=== PATIENT | male | born 1990 | race Caucasian/White ===

== ENCOUNTER 2025-01-10 17:45 | Day surgery (SDC) | payer OTHER, SELFPAY ==
[2025-01-10] VITALS (9 sets, daily range): BP systolic 124–144; BP diastolic 83–102; PULSE 72–88; RESP 20–27; TEMP 36.3–36.7; O2SAT 98–100
--- OUTSIDE RECORDS SUMMARY | 2025-01-10 18:11 | XMS_ITS | Clinical Summary ---
Author Organization [facility] Address [address] [place] [address] Phone Care Team Providers Care Brim Stitcher Name Role Phone Unavailable Primary Care Provider Unavailabl e Social History Tobacco Use Types Packs/Day Years Used Date Smoking Tobacco: Never Assessed Sex and Gender Information Value Date Recorded Sex Assigned at Not on file Legal Sex Male 9:30 AM CDT Gender Identity Not on file Sexual Orientation Not on file Plan of Treatment Health Maintenance Due Date Last Done Comments DTAP/TDAP/TD VACCINES (1 - Tdap) 02/09/2008 HEPATITIS B VACCINES (1 of 3 - 19+ 3-dose series) 01/14 HPV VACCINES (1 - 3-dose SCDM series) 02/09/2016 INFLUENZA VACCINE (#1) 2024 Insurance [employer] CHOICE POS II
--- OUTSIDE RECORDS SUMMARY | 2025-01-10 18:11 | XMS_ITS | Clinical Summary ---
Author Organization [facility] Address [facility] [place] [address] Care Team Providers Care Aircraft Riveter Name Role Phone LuisjinaCarlos garner Sanjay MCKEON Primary Care Provider + Allergies No known active allergies Medications omeprazole (PRILOSEC) 40 MG capsuleIndicati ons:Chronic cough Take 1 capsule (40 mg total) by mouth daily. 90 capsule 07/01/2022 Active Active Problems No known active problems Immunizations Immunization Administration Dates Next Due Fluzone 6 Months+ Quad (0.5 mL Prefilled Syringe ) 12/19/2019 Influenza Adult (Generic) 01/26/2022,04/25/2021 PFIZER COVID-19 (ORIGINAL FO RMULATION, PURPLE CAP) mRNA, LNP-S, PF, 30 MCG/0.3 ML DOSE 03/26/2020,03/05/2020 Tdap (Adacel) 02/04/2022 Family History Medical History Relation Comments Diabetes Father Hypertension Father Stroke Father Hypertension Mother Relation Status Comments Father Mother Social History Tobacco Use Types Packs/Day Years Used Date Smoking Tobacco: Never Passive Smoke Exposure: Never Smokeless Tobacco: Never Alcohol Use Standard Drinks/Week Comments Not Currently 3.3 (1 standard drink = 0.6 oz p ure alcohol) very rare AUDIT-C Answer Date Recorded Q1: How often do you have a drink containing alc ohol? Never 12/30/2019 Average Number of Drinks Not on file 020 Frequency of Binge Drinking Not on file 12/13 PHQ-2 Answer Date Recorded Patient Health Questionnaire-2 Score 0 07/01/2022 Sex and Gender Information Value Date Recorded Sex Assigned at Not on file Legal Sex Male 11:45 AM CDT Gender Identity Not on file Sexual Orientation Not on file Occupation Industry Job Start Date Job End Date Not on file Not on file Not on file Not on file Last Filed Vital Signs Vital Sign Reading Time Taken Comments Blood Pressure 112/78 07/01/2022 11:15 AM CDT Pulse 80 07/01/2022 11:15 AM CDT Temperature 36.9 C (98.4 F) 07/01/2022 11:15 AM CDT Respiratory Rate 16 07/01/2022 11:1 5 AM CDT Oxygen Saturation 98% 07/01/2022 11: 15 AM CDT Inhaled Oxygen Concentration - - Weight 122.9 kg (270 lb 14.4 oz) 2022 11:15 AM CDT Height 175.3 cm (5' 9) 07/01/2022 11:1 5 AM CDT Body Mass Index 40 07/01/2022 11:15 AM CDT Plan of Treatment Health Maintenance Due Date Last Done Comments Hepatitis B Vaccines (1 of 3 - 19+ 3-dose series) 02/09/2008 HPV Vaccines (1 - 3-dose SCD M series) 02/09/2016 Annual Physical 02/04/2023 02/04/2022 COVID-19 Vaccine (3 - 2024-2 6 season) 2024 03/26/2020, 03/05/2020 Influenza Adult (#1) 2024 01/26/2022, 04/25/2021, 12/19/2019 DTaP, Tdap and Td Vaccines ( 2 - Td or Tdap) 02/05/2032 02/04/2022 Hepatitis C Completed 07/03/2022 Hepatitis A Vaccines Aged Out No long er eligible based on patient's age to complete this topic Meningococcal B Vaccine Aged Out No l onger eligible based on patient's age to complete this topic Meningococcal Vaccine Aged Out No naresh power eligible based on patient's age to complete this topic Pneumococcal Vaccine: Pediatrics (0 to 5 Years) and At-Risk Patients (6 to 49 Years) Aged Out No longer eligible b ased on patient's age to complete this topic RSV Immunizations Under 20 Months Aged Out No longer eligible b ased on patient's age to complete this topic Procedures Procedure Name Priority Date/Time Associated Diagnosis Comments HEPATITIS C ANTIBODY W/RFX TO HCV RNA Routine 07/03/2022 9:13 AM CDT from Last 3 Months or Most Recently Relevant to Health Maintenance Results * HEPATITIS C ANTIBODY W/RFX TO HCV RNA (07/03/2022 9:13 AM CDT) HEPATITIS C AB NON-REACT KELI NON-REACT KELI [facility] SIGNAL TO CUTOFF 0.05 <1.00 [employer] Comment: HCV antibody was non-reactive. There is no laboratory evidence of HCV infection. In most cases, no further action is required. However, if recent HCV exposure is suspected, a test for HCV RNA (test code 90485) is suggested. For additional information please refer to http://education.[employer]/faq/VUO03p5 (This link is being provided for informational/ educational purposes only.) 07/03/2022 9:13 AM CDT 07/03/2022 9:16 AM CDT Narrative Resulting Agency Comment Performing Organization Information: Site ID: [place] Name: [facility] Address: [address] [place] [id number] Director: Celena Campbell MD Carlos Rawls DO LABORATORY Final Re sult [facility] [address] [place], [place] [address] from Last 3 Months or Most Recently Relevant to Health Maintenance Insurance [employer] Care Teams Aircraft Riveter Relationship Specialty Start Date End Date Carlos Rawls DO [address] [place] [id number] PCP - General FAMILY PRACTICE 02/04/22
--- NOTE | 2025-01-10 18:25 | ECG_ITS ---
Test Date: 2025-01-10 18:56:27 Measurements Intervals [place] Rate: 81 P: 35 W[place]: 159 QRS: 23 QRSD: 105 T: 26 QT: 365 QTc: 426 Interpretive Statements SINUS RHYTHM WITH SINUS ARRHYTHMIA POSSIBLE LEFT ATRIAL ENLARGEMENT BASELINE ARTIFACT- I, II, III, AVR, AVL BORDERLINE ECG No previous ECG available for comparison Electronically Signed On 01-10-2025 20:29:57 CDT by Roberto Villarreal D.O.
--- NOTE | 2025-01-10 18:26 | ED_ITS ---
HPI - General Adult General Chief complaint: Skin/Abscess/Foreign Body Stated complaint: ?beef stuck in esophagus Time Seen by Provider: 01/10/25 18:03 History of Present Illness HPI narrative: 34-year-old male present to the emergency department for evaluation for concern for esophageal food bolus. Patient states he was eating pieces of beef at lunch today and is currently obstructed. Patient states since that time he has been unable to swallow his own secretions without further emesis. Patient does have prior history of esophagitis and gastritis. Patient has had prior short lasting obstructions but nothing has required intervention. Patient has never had any endoscopy. Related Data Allergies Allergy/AdvReac Type Severity Reaction Status Date / Time No Known Allergies Allergy Mild Verified 01/10/25 19:48 Review of Systems 2 Review of Systems: All systems reviewed & are unremarkable except as noted in HPI and below PMFSH Past Medical History Medical History (Updated 01/10/25 @ 20:19 by Lauri Dickson MD) Food impaction of esophagus Morbid obesity Exam 2 Narrative: APPEARANCE: Uncomfortable appearing HEAD: normocephalic, atraumatic. EYES: PERRLA/EOMI, conjunctivae clear. NOSE: Normal no drainage EARS:TMS clear with good light reflex. THROAT: Pharynx clear, no exudate. NECK: Supple. No adenopathy, no masses. RESPIRATORY: Airway patent, respirations nonlabored. Clear to auscultation bilaterally, no rales, rhonchi, wheezing. CARDIOVASCULAR: Regular rate and rhythm without murmurs rubs or gallops. ABDOMINAL: Soft, nontender, nondistended, normal bowel sounds MUSCULOSKELETAL: Moves all extremities. Strength/ROM intact, No edema, No calf tenderness. NEURO: Alert. Cranial nerves II through XII intact. Good gait. Good coordination SKIN: Warm, dry. Normal Color Course Vital Signs Vital signs: Vital Signs Temperature 98.0 F 01/10/25 17:54 Pulse Rate 88 01/10/25 17:54 Respiratory Rate 20 01/10/25 17:54 Blood Pressure 144/102 H 01/10/25 17:54 Pulse Oximetry 98 01/10/25 17:54 Oxygen Delivery Room Air 01/10/25 17:54 Temperature 97.6 F 01/10/25 21:28 Pulse Rate 77 01/10/25 21:28 Respiratory Rate 25 H 01/10/25 21:28 Blood Pressure 127/83 01/10/25 21:28 Pulse Oximetry 98 01/10/25 21:28 Oxygen Delivery Room Air 01/10/25 21:28 Oxygen Flow Rate 8 01/10/25 20:38 Medical Decision Making MDM Narrative Medical decision making narrative: 34-year-old male presents emergency department for evaluation for suspected fluid bolus. Patient is currently unable to handle his own secretions and this has been persistent since noon. Patient did attempt baking soda and tapping checks at home with no improvement. Patient was treated with glucagon emergency department with no improvement. Case was discussed with GI and patient was taken to the GI lab. Patient was updated on the results of the consult and plan for intervention. Patient was afebrile with no leukocytosis hemoglobin of 14.9. No abnormalities on his CMP and EKG showed normal sinus rhythm. Patient was well-appearing at transfer to the GI lab. Differential Diagnosis Differential Diagnosis: Esophageal obstruction, gastritis, esophagitis Vital Signs Vital Signs: Vital Signs Temperature 98.0 F 01/10/25 17:54 Pulse Rate 88 01/10/25 17:54 Respiratory Rate 20 01/10/25 17:54 Blood Pressure 144/102 H 01/10/25 17:54 Pulse Oximetry 98 01/10/25 17:54 Oxygen Delivery Room Air 01/10/25 17:54 Temperature 97.6 F 01/10/25 21:28 Pulse Rate 77 01/10/25 21:28 Respiratory Rate 25 H 01/10/25 21:28 Blood Pressure 127/83 01/10/25 21:28 Pulse Oximetry 98 01/10/25 21:28 Oxygen Delivery Room Air 01/10/25 21:28 Oxygen Flow Rate 8 01/10/25 20:38 Lab Data 01/10/25 18:50 01/10/25 18:50 Labs: Lab Results 01/10/25 Range/Units 18:50 WBC 3.6 L (4.5-10.0) K/mm3 RBC 5.39 (4.6-6.20) M/mm3 Hgb 14.9 (14.0-18.0) g/dL Hct 44.6 (42.0-52.0) % MCV 82.7 (80-100) fl MCH 27.6 (26-34) pg MCHC 33.4 (32-36) g/dl RDW 14.2 (11.5-14.5) % Plt Count 170 (150-375) k/mm3 MPV 9.5 (7.4-10.4) fl Immature Gran % (Auto) Not Reportable Neut % (Auto) Not Reportable Lymph % (Auto) Not Reportable [place] % (Auto) Not Reportable Eos % (Auto) Not Reportable Baso % (Auto) Not Reportable Lymph # (Auto) Not Reportable [place] # (Auto) Not Reportable Eos # (Auto) Not Reportable Baso # (Auto) Not Reportable Abs Immat Gran (auto) Not Reportable Absolute Neuts (auto) Not Reportable Absolute Nucleated RBC Not Reportable Total Counted 100 Neutrophils % (Manual) 18 L (46-73) % Band Neutrophils % 3 (0-6) % Lymphocytes % (Manual) 50.0 H (18-44) % Monocytes % (Manual) 19 H (3-9) % Eosinophils % (Manual) 9 H (0-4) % Basophils % (Manual) 1 (0-1) % Nucleated RBC % Not Reportable Abs Neuts (Manual) 0.75 L (1.3-6.7) K/mm3 Abs Lymphs (Manual) 1.80 (1.1-4.5) K/mm3 Abs Monocytes (Manual) 0.68 (0.1-0.90) K/mm3 Absolute Eos (Manual) 0.32 (0.02-0.50) K/mm3 Abs Basophils (Manual) 0.03 (0.0-0.1) K/mm3 Platelet Estimate Adequate (Adequate) Schistocytes None seen PT 12.9 (11.1-14.7) Seconds INR 1.0 APTT 27.3 (22.3-36.8) Seconds Sodium 141 (137-145) mmol/L Potassium 3.6 (3.4-5.0) mmol/L Chloride 104 (98-107) mmol/L Carbon Dioxide 26 (22-30) mmol/L Anion Gap 11 (4-12) mmol/L BUN 9 (9-20) mg/dL Creatinine 1.20 (0.7-1.3) mg/dL Estim Creat Clear Calc 99 ml/min Estimated GFR > 60 (59 - ) Glucose 92 (65-110) mg/dL Calcium 9.1 (8.4-10.2) mg/dL Total Bilirubin 1.3 (0.2-1.3) mg/dL AST 37 (17-59) U/L ALT 42 (6-50) U/L Alkaline Phosphatase 97 (38-126) U/L Total Protein 7.5 (6.3-8.2) g/dL Albumin 4.5 (3.5-5.1) g/dL Discharge Plan Discharge Clinical Impression: Food impaction of esophagus Patient Disposition: Home Condition: Stable
[2025-01-10 18:57] LABS: Hematocrit 44.6 % (42.0-52.0); Hemoglobin 14.9 g/dL (14.0-18.0); Mean Corpuscular HGB Conc 33.4 g/dl (32-36); Mean Corpuscular Hemoglobin 27.6 pg (26-34); Mean Corpuscular Volume 82.7 fl (80-100); Platelet Count Result 170 k/mm3 (150-375); Red Blood Count 5.39 M/mm3 (4.6-6.20); White Blood Count 3.6 K/mm3 (4.5-10.0)
[2025-01-10 19:08] LABS: Alanine Aminotransferase 42 U/L (6-50); Albumin Level 4.5 g/dL (3.5-5.1); Alkaline Phosphatase 97 U/L (38-126); Anion Gap 11 mmol/L (4-12); Aspartate Amino Transferase 37 U/L (17-59); Bilirubin,Total 1.3 mg/dL (0.2-1.3); Blood Urea Nitrogen 9 mg/dL (9-20); Calcium 9.1 mg/dL (8.4-10.2); Carbon Dioxide 26 mmol/L (22-30); Chloride 104 mmol/L (98-107); Estimated CRCL calculation 99 ml/min; Estimated Glomerular Filt Rate > 60; Glucose 92 mg/dL (65-110); Potassium 3.6 mmol/L (3.4-5.0); Sodium 141 mmol/L (137-145); Total Protein 7.5 g/dL (6.3-8.2)
[2025-01-10 19:11] LABS: INR 1.0; Prothrombin Time 12.9 Seconds (11.1-14.7)
[2025-01-10 19:12] LABS: Partial Thromboplastin Time 27.3 Seconds (22.3-36.8)
--- NOTE | 2025-01-10 19:25 | PC.NURSE ---
Mary from GI calling for report on pt. Will be here to get pt here shortly
[2025-01-10 19:32] LABS: Band Neutrophils Percent 3 % (0-6); Basophils Absolute Manual 0.03 K/mm3 (0.0-0.1); Basophils Percent Manual 1 % (0-1); Eosinophils Absolute Manual 0.32 K/mm3 (0.02-0.50); Eosinophils Percent Manual 9 % (0-4); Lymphocytes Absolute Manual 1.80 K/mm3 (1.1-4.5); Lymphocytes Percent Manual 50.0 % (18-44); Monocytes Absolute Manual 0.68 K/mm3 (0.1-0.90); Monocytes Percent Manual 19 % (3-9); Neutrophils Absolute Manual 0.75 K/mm3 (1.3-6.7); Neutrophils Percent Manual 18 % (46-73); Schistocytes None Seen; Total Cells Counted 100
--- NOTE | 2025-01-10 19:37 | P.PNAN_ITS ---
Anes - Eval Pre Procedure Procedure: EGD for food bolus Date/Time: 01/10/25 19:37 Surgeon: Anil Preop Diagnosis: Foreign body esophagus Pre Op Diagnosis: ?beef stuck in esophagus Patient Data Age: 34 Gender: M Height: 1.75 m Weight: 122.3 kg Last Vital Signs Temp 98.0 F 01/10/25 17:54 Pulse 88 01/10/25 17:54 Resp 20 01/10/25 17:54 BP 144/102 H 01/10/25 17:54 Pulse Ox 98 01/10/25 17:54 O2 Del Method Room Air 01/10/25 17:54 Allergies Allergy/AdvReac Type Severity Reaction Status Date / Time No Known Allergies Allergy Mild Verified 01/10/25 17:48 Laboratory Tests 01/10/25 18:50 WBC 3.6 L K/mm3 (4.5-10.0) RBC 5.39 M/mm3 (4.6-6.20) Hgb 14.9 g/dL (14.0-18.0) Hct 44.6 % (42.0-52.0) MCV 82.7 fl (80-100) MCH 27.6 pg (26-34) MCHC 33.4 g/dl (32-36) RDW 14.2 % (11.5-14.5) Plt Count 170 k/mm3 (150-375) MPV 9.5 fl (7.4-10.4) Immature Gran % (Auto) Not Reportable Neut % (Auto) Not Reportable Lymph % (Auto) Not Reportable [place] % (Auto) Not Reportable Eos % (Auto) Not Reportable Baso % (Auto) Not Reportable Lymph # (Auto) Not Reportable [place] # (Auto) Not Reportable Eos # (Auto) Not Reportable Baso # (Auto) Not Reportable Abs Immat Gran (auto) Not Reportable Absolute Neuts (auto) Not Reportable Absolute Nucleated RBC Not Reportable Total Counted 100 Neutrophils % (Manual) 18 L % (46-73) Band Neutrophils % 3 % (0-6) Lymphocytes % (Manual) 50.0 H % (18-44) Monocytes % (Manual) 19 H % (3-9) Eosinophils % (Manual) 9 H % (0-4) Basophils % (Manual) 1 % (0-1) Nucleated RBC % Not Reportable Abs Neuts (Manual) 0.75 L K/mm3 (1.3-6.7) Abs Lymphs (Manual) 1.80 K/mm3 (1.1-4.5) Abs Monocytes (Manual) 0.68 K/mm3 (0.1-0.90) Absolute Eos (Manual) 0.32 K/mm3 (0.02-0.50) Abs Basophils (Manual) 0.03 K/mm3 (0.0-0.1) Platelet Estimate Adequate (Adequate) Schistocytes None seen PT 12.9 Seconds (11.1-14.7) INR 1.0 APTT 27.3 Seconds (22.3-36.8) Sodium 141 mmol/L (137-145) Potassium 3.6 mmol/L (3.4-5.0) Chloride 104 mmol/L (98-107) Carbon Dioxide 26 mmol/L (22-30) Anion Gap 11 mmol/L (4-12) BUN 9 mg/dL (9-20) Creatinine 1.20 mg/dL (0.7-1.3) Estim Creat Clear Calc 99 ml/min Estimated GFR > 60 (59 - ) Glucose 92 mg/dL (65-110) Calcium 9.1 mg/dL (8.4-10.2) Total Bilirubin 1.3 mg/dL (0.2-1.3) AST 37 U/L (17-59) ALT 42 U/L (6-50) Alkaline Phosphatase 97 U/L (38-126) Total Protein 7.5 g/dL (6.3-8.2) Albumin 4.5 g/dL (3.5-5.1) Patient hx anesthesia problems: none Family hx anesthesia problems: none Results Review: All pre-operative results and documents have been reviewed as part of the pre- operative evaluation. [facility] Past Medical History Medical History (Updated 01/10/25 @ 19:38 by Shashank Morales Jr., HOGSHEAD SALVAGE) Morbid obesity Exam Day of Procedure 01/10/25 19:37 Patient weight: morbidly obese Heart: regular rate and rhythm Lungs: clear to auscultation Airway: Mallampati scale class III Neurological: alert and oriented
--- NOTE | 2025-01-10 19:41 | P.PNAN_ITS ---
Anes - Eval Final PreProcedure Day of Procedure 01/10/25 19:41 Patient weight: morbidly obese Heart: regular rate and rhythm Lungs: clear to auscultation Airway: Mallampati scale class III Neurological: alert and oriented Last oral intake: 6 hours ASA classification: III Emergent: yes Anesthetic plan: proceed Anesthesia type and monitoring: general GIVS and ETT and standard monitoring Results Review: All pre-operative results and documents have been reviewed as part of the pre- operative evaluation. Informed Consent: The patient's anesthetic plan and its attendant risks and benefits were discu ssed with the patient/family/POA. Questions were solicited and answers provided to the satisfaction of the patient/family/POA.
[2025-01-10] MEDS: LACTATED RINGERS 1,000 ML 150 ML IV CONT (19:52)
--- NOTE | 2025-01-10 19:53 | PM.HPGS ---
History of Present Illness History of Present Illness Consent: Risks, benefits, and alternatives have been discussed and questions answered. Patient agrees to proceed with procedure. Chief complaint: food bolus Narrative: Hector Narvaez is a 34 year old male with h/o intermittent dysphagia after eating solids but never had egd, he had steak for lunch and since unable to swallow even saliva, glucagon in ER did not help Review of Systems Review of Systems: All systems reviewed & are unremarkable except as noted in HPI and below PMFSH Past Medical History Medical History (Updated 01/10/25 @ 19:55 by Lauri Dickson MD) Food impaction of esophagus Morbid obesity Meds Home Medications and Allergies Allergies Allergy/AdvReac Type Severity Reaction Status Date / Time No Known Allergies Allergy Mild Verified 01/10/25 19:48 Vital Signs Vital Signs - 24 hr 01/10/25 17:54 01/10/25 19:50 Temperature 98.0 F 97.5 F L Pulse Rate 88 83 Respiratory Rate 20 20 Blood Pressure 144/102 H 126/90 Pulse Oximetry 98 99 Oxygen Delivery Room Air Room Air Exam Const: General: cooperative and healthy appearing GI: GI Palp: No abdominal tenderness Auscultation: normal bowel sounds Extrem: General: normal to inspection Assessment and Plan Assessment and plan (1) Food impaction of esophagus: Code(s): T18.128A - Food in esophagus causing other injury, initial encounter; W44.F3XA - Food entering into or through a natural orifice, initial encounter Status: Acute Assessment and Plan: urgent egd
--- NOTE | 2025-01-10 20:25 | S_PTH ---
PATIENT: Hector Narvaez LOC: [facility] U#:[id number] AGE/SX: 34/M ROOM: RE01/10/[address]: Lauri Dickson MD : 1990 BED: DIS: 01/10/2025 SPEC #: [id number] RECD: 01/11/25 07:24 STATUS: SHAUN REQ #: [id number] XIN: 01/10/25 20:[address]: Lauri Dickson DEPT: [facility] Surgical RECD BY: Melissa Keane ENTERED: 01/11/25 07:28 SP TYPE: Surgical OTHR DR: PHYSICIAN NOT ON STAFF Tissues: A - Biopsy B - Biopsy C - Biopsy Procedures: Hematoxylin and Eosin Stain Gross and Microscopic Level 4
--- OUTSIDE RECORDS SUMMARY | 2025-01-10 21:42 | XMS_ITS | Clinical Summary ---
Author Organization [facility] Address [facility] [place] [address] Care Team Providers Care Tractor Driver Teamster Name Role Phone LuisjinaCarlos garner Sanjay MCKEON [...] HEPATITIS C AB NON-REACT KELI NON-REACT KELI [employer] [facility] SIGNAL TO CUTOFF 0.05 <1.00 [employer] [facility] Comment: HCV antibody was non-reactive. There is no laboratory evidence of HCV infection. In most cases, no further action is required. However, if recent HCV exposure is suspected, a test for HCV RNA (test code 65772) is suggested. For additional information please refer to http://education.[employer]/faq/VXH98u7 (This link is being provided for informational/ educational purposes only.) 07/03/2022 9:13 AM CDT 07/03/2022 9:16 AM CDT Narrative Resulting Agency Comment Performing Organization Information: Site ID: [place] Name: [facility] Address: [address] [place] [phone] Director: Celena Campbell MD Carlos Rawls DO LABORATORY Final Re sult [employer] [facility] [employer] [facility] [address] [place], [place] [address] from Last 3 Months or Most Recently Relevant to Health Maintenance Insurance [employer] Care Teams Tractor Driver Teamster Relationship Specialty Start Date End Date Carlos Rawls DO [address] [place] [id number] PCP - General FAMILY PRACTICE 02/04/22
--- OUTSIDE RECORDS SUMMARY | 2025-01-10 21:42 | XMS_ITS | Clinical Summary ---
Author Organization [facility] Address [address] [facility] [address] [place] [address] Care Team Providers Care Aviation Electronic Warfare Operator Name Role Phone Unavailable Primary Care Provider Unavailabl e Source Comments [facility],non-owned Affiliates and Associated Physician Practices is amultiple site organization consisting of ambulatory clinics and hospital sitesin [place], [place], [place] and [place]. This disclosure is being madepursuant to the Care Everywhere program and may not contain all information available regarding this patient. Last updated 17.[employer] Allergies No known active allergies Medications * Be aware that medications may not be up to date on this document. Alwaysverify current medications with the patient. 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 Gender Identity Not on file Sexual Orientation Not on file Last Filed Vital Signs Vital Sign Reading Time Taken Comments Blood Pressure 135/85 12/23/2021 1:04 PM CDT Pulse 80 12/23/2021 1:04 PM CDT Temperature 36.9 C (98.5 F) 12/23/2021 1:04 PM CDT Respiratory Rate 16 12/23/2021 1:04 PM CDT Oxygen Saturation 99% 12/23/2021 1:04 PM CDT Inhaled Oxygen Concentration - - Weight 117.9 kg (260 lb) 12/23/2021 1:04 PM CDT Height 175.3 cm (5' 9) 12/23/2021 1:04 PM CDT Body Mass Index 38.4 12/23/2021 1:04 PM CDT Plan of Treatment Health Maintenance Due Date Last Done Comments HIV SCREENING 02/09/2004 HEPATITIS C SCREENING 02/04/2007 DTAP/TDAP/TD VACCINES (1 - Tdap) 02/09/2008 HEPATITIS B VACCINE (1 of 3 - 19+ 3-dose series) 02/09/2008 HPV VACCINE (1 - 3-dose SCDM series) 02/09/2016 DEPRESSION SCREENING 03/15/2024 COVID-19 VACCINE (3 - 2024-2 6 season) 2024 03/26/2020, 03/05/2020 INFLUENZA VACCINE (#1) 2024 2, 12/19/2019 ZOSTER VACCINE (1 of 2) 2039 HIB VACCINE Aged Out No longer eligi ble based on patient's age to complete this topic MENINGOCOCCAL (Group B) VACCINE SHARED DECISION-MAKING Aged Out No longer eligible based on patient's age to complete this topic MENINGOCOCCAL GROUPS A/C/Y/W VACCINE Aged Out No longer eligible b ased on patient's age to complete this topic PNEUMOCOCCAL VACCINE Aged Out No long er eligible based on patient's age to complete this topic Insurance [facility]
--- OUTSIDE RECORDS SUMMARY | 2025-01-10 21:42 | XMS_ITS | Clinical Summary ---
Author Organization [facility] Address [address] [place] [address] Phone Care Team Providers Care Services Program Manager Name Role Phone Unavailable Primary Care Provider [...]
== END 2025-01-10 21:38 | disposition home or self-care (01) ==
LOC: ANHED 19:05 → ANHSURGERY 21:40
PROVIDERS: Emergency Provider Emergency Medicine; Visit Provider Internal Medicine Gastroenterology
PROC: 0DJ08ZZ Inspection of Upper Intestinal Tract, Via Natural or Artificial Opening Endoscopic (ICD-10-PCS; CPT 43247; principal; 2025-01-10 19:45)
DX: T18.128A Food in esophagus causing other injury, initial encounter (principal); K22.2 Esophageal obstruction; K21.00 Gastro-esophageal reflux disease with esophagitis, without bleeding; W44.F3XA Food entering into or through a natural orifice, initial encounter; E66.01 Morbid (severe) obesity due to excess calories; Z68.39 Body mass index [BMI] 39.0-39.9, adult
CPT/HCPCS: 43247; 43239; 36415; 80053; 85025; 85610; 85730; 88305; 93005; 99285; J0330; J2704; J7120